=== PATIENT | female | born 1995 | race Caucasian/White ===

== ENCOUNTER 2017-01-18 17:14 | Emergency (ER) | payer BC, OTHER ==
[2017-01-18 17:28] VITALS: BP 114/62
--- NOTE | 2017-01-18 18:10 | EDM.PDOC ---
ED HPI GENERAL MEDICAL PROBLEM - General Chief Complaint: General Stated Complaint: SHE WOULD LIKE TO HAVE BLOOD WORK Time Seen by Provider: 01/18/17 17:50 Source of Information: Reports: Patient History Limitations: Reports: No Limitations - History of Present Illness INITIAL COMMENTS - FREE TEXT/NARRATIVE: History of present illness: [-year-old female comes in complaining of lightheadedness and some passing out. Patient indicates she had wisdom teeth extracted today and the only time she has had this is when she is anemic] Review of systems: As per history of present illness and below otherwise all systems reviewed and negative. Past medical history: As per history of present illness and as reviewed below otherwise noncontributory. Surgical history: As per history of present illness and as reviewed below otherwise noncontributory. Social history: No reported history of drug or alcohol abuse. Family history: As per history of present illness and as reviewed below otherwise noncontributory. Physical exam: HEENT: Atraumatic, normocephalic, pupils reactive, negative for conjunctival pallor or scleral icterus, mucous membranes moist, throat clear, neck supple, nontender, trachea midline. Lungs: Clear to auscultation, breath sounds equal bilaterally, chest nontender. Heart: S1S2, regular, negative for clicks, rubs, or JVD. Abdomen: Soft, nondistended, nontender. Negative for masses or hepatosplenomegaly. Negative for costovertebral tenderness. Pelvis: Stable nontender. Genitourinary: Deferred. Rectal: Deferred. Extremities: Atraumatic, negative for cords or calf pain. Neurovascular unremarkable. Neuro: Awake, alert, oriented. Cranial nerves II through XII unremarkable. Cerebellum unremarkable. Motor and sensory unremarkable throughout. Exam nonfocal. We'll assessment is benign save as that noted subjectively in the history of present illness. Diagnostics: [CBC] Therapeutics: [] Impression: [Medical evaluation] Plan: [Followup with family practitioner] Definitive disposition and diagnosis as appropriate pending reevaluation and review of above. Oral/Mouth Pain Score (Numeric/FACES): 0 - Related Data Allergies Allergy/AdvReac Type Severity Reaction Status Date / Time ciprofloxacin [From Cipro] Allergy Fever Verified 01/18/17 17:27 Home Meds: Home Meds Amoxicillin/Potassium Clav [Augmentin 875-125 Tablet] 01/18/17 [History] oxyCODONE HCl/Acetaminophen [oxyCODONE-Acetaminophen 5-325] 01/18/17 [History] Past Medical History - Past Health History Medical/Surgical History: Denies Medical/Surgical History HEENT History: Reports: None Cardiovascular History: Reports: None Respiratory History: Reports: None Gastrointestinal History: Reports: None Genitourinary History: Reports: None REPORT SPECIALIST History: Reports: None Musculoskeletal History: Reports: None Neurological History: Reports: None Psychiatric History: Reports: None Endocrine/Metabolic History: Reports: None Hematologic History: Reports: Anemia, Blood Transfusion(s) Immunologic History: Reports: None Oncologic (Cancer) History: Reports: None Dermatologic History: Reports: None - Infectious Disease History Infectious Disease History: Reports: None - Past Surgical History Head Surgeries/Procedures: Reports: None Social & Family History - Family History Family Medical History: Noncontributory - Tobacco Use Smoking Status *Q: Never Smoker Second Hand Smoke Exposure: Yes - Caffeine Use Caffeine Use: Reports: Energy Drinks, Soda Caffeine Use Comment: 2/day - Recreational Drug Use Recreational Drug Use: No ED ROS GENERAL - Review of Systems Review Of Systems: See Below (See history of present illness) ED EXAM, GENERAL - Physical Exam Exam: See Below (See history of present illness) Course - Vital Signs Last Recorded V/S: Last Vital Signs Temp 37.5 C 01/18/17 17:27 Pulse 81 01/18/17 17:27 Resp 14 01/18/17 17:27 BP 114/62 01/18/17 17:27 Pulse Ox 97 01/18/17 17:27 - Orders/Labs/Meds Labs: Laboratory Tests 01/18/17 Range/Units 17:40 WBC 8.22 (4.0-11.0) K/uL RBC 4.60 (4.30-5.90) M/uL Hgb 13.5 (12.0-16.0) g/dL Hct 41.4 (36.0-46.0) % MCV 90.0 (80.0-98.0) fL MCH 29.3 (27.0-32.0) pg MCHC 32.6 (31.0-37.0) g/dL RDW Std Deviation 41.4 (28.0-62.0) fl RDW Coeff of Pieter 13 (11.0-15.0) % Plt Count 183 (150-400) K/uL MPV 9.70 (7.40-12.00) fL Neut % (Auto) 77.8 (48.0-80.0) % Lymph % (Auto) 16.8 (16.0-40.0) % [place] % (Auto) 4.3 (0.0-15.0) % Eos % (Auto) 1.0 (0.0-7.0) % Baso % (Auto) 0.1 (0.0-1.5) % Neut # (Auto) 6.4 H (1.4-5.7) K/uL Lymph # (Auto) 1.4 (0.6-2.4) K/uL [place] # (Auto) 0.4 (0.0-0.8) K/uL Eos # (Auto) 0.1 (0.0-0.7) K/uL Baso # (Auto) 0.0 (0.0-0.1) K/uL Nucleated RBC % 0.0 /100WBC Nucleated RBCs # 0 K/uL Departure - Departure Time of Disposition: 18:08 Disposition: Home, Self-Care 01 Condition: good Clinical Impression: Light-headedness - Discharge Information Forms: ED Department Discharge Additional Instructions: The following information is given to patients seen in the emergency department who are being discharged to home. This information is to outline your options for follow-up care. We provide all patients seen in our emergency department with a follow-up referral. The need for follow-up, as well as the timing and circumstances, are variable depending upon the specifics of your emergency department visit. If you don't have a primary care physician on staff, we will provide you with a referral. We always advise you to contact your personal physician following an emergency department visit to inform them of the circumstance of the visit and for follow-up with them and/or the need for any referrals to a consulting specialist. The emergency department will also refer you to a specialist when appropriate. This referral assures that you have the opportunity for follow-up care with a specialist. All of these measure are taken in an effort to provide you with optimal care, which includes your follow-up. Under all circumstances we always encourage you to contact your private physician who remains a resource for coordinating your care. When calling for follow-up care, please make the office aware that this follow-up is from your recent emergency room visit. If for any reason you are refused follow-up, please contact the [facility] Emergency Department at and asked to speak to the emergency department charge nurse. Followup with your primary care provider for more detailed iron-binding studies to benefit you Take your iron as prescribed Return to ED as needed as discussed
== END 2017-01-18 18:21 | disposition home or self-care (01) ==
LOC: MW.ED 17:14
DX: R42 Dizziness and giddiness (principal); Z88.1 Allergy status to other antibiotic agents; Z86.2 Personal history of diseases of the blood and blood-forming organs and certain disorders involving the immune mechanism
CPT/HCPCS: 36415; 85025; 99282; 99283

== ENCOUNTER 2017-06-17 19:22 | Emergency (ER) | payer BC ==
[2017-06-17] MEDS ORDERED: Acyclovir 200 MG Cap PO ONE (20:33)
--- NOTE | 2017-06-17 20:33 | EDM.PDOC ---
ED HPI GENERAL MEDICAL PROBLEM - General Chief Complaint: ENT Problem Stated Complaint: EARACHE/HEADACHE/ULCERS MOUTH Time Seen by Provider: 06/17/17 20:23 Source of Information: Reports: Patient History Limitations: Reports: No Limitations - History of Present Illness INITIAL COMMENTS - FREE TEXT/NARRATIVE: History of present illness: [21-year-old female comes in complaining of sores in the back of her throat in the floor of her mouth indicated that she been placed on antibiotics by her PCP and they continue to get worse when she called in to check in with them they indicated she should come and be evaluated in the ED] Review of systems: As per history of present illness and below otherwise all systems reviewed and negative. Past medical history: As per history of present illness and as reviewed below otherwise noncontributory. Surgical history: As per history of present illness and as reviewed below otherwise noncontributory. Social history: No reported history of drug or alcohol abuse. Family history: As per history of present illness and as reviewed below otherwise noncontributory. Physical exam: HEENT: Atraumatic, normocephalic, pupils reactive, negative for conjunctival pallor or scleral icterus, mucous membranes moist ulcerated patches noted to be in the oropharynx and in the floor of the mouth, throat clear, neck supple, nontender, trachea midline. Lungs: Clear to auscultation, breath sounds equal bilaterally, chest nontender. Heart: S1S2, regular, negative for clicks, rubs, or JVD. Abdomen: Soft, nondistended, nontender. Negative for masses or hepatosplenomegaly. Negative for costovertebral tenderness. Pelvis: Stable nontender. Genitourinary: Deferred. Rectal: Deferred. Extremities: Atraumatic, negative for cords or calf pain. Neurovascular unremarkable. Neuro: Awake, alert, oriented. Cranial nerves II through XII unremarkable. Cerebellum unremarkable. Motor and sensory unremarkable throughout. Exam nonfocal. Diagnostics: [] Therapeutics: [] Impression: [Ulcerative all oral lesions possibly by of viral origin] Plan: [Cyclovir care and acyclovir Rx for tomorrow] Definitive disposition and diagnosis as appropriate pending reevaluation and review of above. Oral/Mouth Pain Score (Numeric/FACES): 3 - Related Data Allergies Allergy/AdvReac Type Severity Reaction Status Date / Time ciprofloxacin [From Cipro] Allergy Fever Verified 06/17/17 19:47 Home Meds: Home Meds Amoxicillin/Potassium Clav [Augmentin 875-125 Tablet] 1 tab PO BID 01/18/17 [ History] Acyclovir 800 mg PO 5XDAY #35 tablet 06/17/17 [Rx] l-Norgest/E.estradion-E.estrad [Camrese 0.15-0.03-0.01 MG] 1 tab PO DAILY [History] Past Medical History - Past Health History Medical/Surgical History: Denies Medical/Surgical History HEENT History: Reports: None Cardiovascular History: Reports: None Respiratory History: Reports: None Gastrointestinal History: Reports: None Genitourinary History: Reports: None 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 Musculoskeletal History: Reports: None Neurological History: Reports: None Psychiatric History: Reports: None Endocrine/Metabolic History: Reports: None Hematologic History: Reports: Anemia, Blood Transfusion(s) Immunologic History: Reports: None Oncologic (Cancer) History: Reports: None Dermatologic History: Reports: None - Infectious Disease History Infectious Disease History: Reports: Chicken Pox - Past Surgical History Head Surgeries/Procedures: Reports: None Social & Family History - Family History Family Medical History: Noncontributory - Tobacco Use Smoking Status *Q: Former Smoker Used Tobacco, but Quit: Yes Month Tobacco Last Used: 11/2016 Second Hand Smoke Exposure: Yes - Caffeine Use Caffeine Use: Reports: Energy Drinks Caffeine Use Comment: 2/day - Recreational Drug Use Recreational Drug Use: No ED ROS GENERAL - Review of Systems Review Of Systems: See Below (The history of present illness) ED EXAM, GENERAL - Physical Exam Exam: See Below (See history of present illness) Course - Vital Signs Last Recorded V/S: Last Vital Signs Temp 37.0 C 06/17/17 19:42 Pulse 81 06/17/17 19:42 Resp 12 06/17/17 19:42 BP 121/81 06/17/17 19:42 Pulse Ox 98 06/17/17 19:42 Departure - Departure Time of Disposition: 20:40 Disposition: Home, Self-Care 01 Condition: Good Clinical Impression: Mouth sores - Discharge Information Referrals: PCP,None [Primary Care Provider] - Additional Instructions: The following information is given to patients seen in the emergency department who are being discharged to home. This information is to outline your options for follow-up care. We provide all patients seen in our emergency department with a follow-up referral. The need for follow-up, as well as the timing and circumstances, are variable depending upon the specifics of your emergency department visit. If you don't have a primary care physician on staff, we will provide you with a referral. We always advise you to contact your personal physician following an emergency department visit to inform them of the circumstance of the visit and for follow-up with them and/or the need for any referrals to a consulting specialist. The emergency department will also refer you to a specialist when appropriate. This referral assures that you have the opportunity for follow-up care with a specialist. All of these measure are taken in an effort to provide you with optimal care, which includes your follow-up. Under all circumstances we always encourage you to contact your private physician who remains a resource for coordinating your care. When calling for follow-up care, please make the office aware that this follow-up is from your recent emergency room visit. If for any reason you are refused follow-up, please contact the [facility] Emergency Department at and asked to speak to the emergency department charge nurse. Take medication as directed Up with your PCP 1-2 days Return to ED as needed as discussed
[2017-06-17 21:05] VITALS: BP 119/76
== END 2017-06-17 21:06 | disposition home or self-care (01) ==
LOC: MW.ED 19:22
DX: K13.70 Unspecified lesions of oral mucosa (principal); Z88.1 Allergy status to other antibiotic agents; Z79.899 Other long term (current) drug therapy; Z87.891 Personal history of nicotine dependence
CPT/HCPCS: 99283; A9270

== ENCOUNTER 2020-05-07 19:16 | Inpatient (IN) | payer BC ==
[2020-05-07] MEDS ORDERED: Sodium Chloride 0.9% 2.5 ML Syringe FLUSH PRN (19:42)
[2020-05-07] MEDS ORDERED: Misoprostol 200 MCG Tab PO PRN (19:42)
[2020-05-07] MEDS ORDERED: Methylergonovine 0.2 MG/1 ML Amp IM PRN (19:42)
[2020-05-07] MEDS ORDERED: Lidocaine 1% 50 ML MDV INJECT PRN (19:42)
[2020-05-07] MEDS ORDERED: Tranexamic Acid 1,000 MG in Sodium Chloride 0.9% 100 ML IV PRN (19:42)
[2020-05-07] MEDS ORDERED: Sodium Chloride 0.9% 10 ML SDV IV PRN (19:42)
[2020-05-07] MEDS ORDERED: Water For Irrigation,Sterile 1,000 ML Container IRR PRN (19:42)
[2020-05-07] MEDS ORDERED: Carboprost Tromethamine 250 MCG/1 ML Amp IM PRN (19:42)
[2020-05-07] MEDS ORDERED: Butorphanol 1 MG/ML SDV IVPUSH PRN (19:42)
[2020-05-07] MEDS ORDERED: Sodium Chloride 0.9% 10 ML Syringe FLUSH PRN (19:42)
[2020-05-07] MEDS ORDERED: Nalbuphine 10 MG/1 ML Vial IVPUSH PRN (19:42)
[2020-05-07] MEDS ORDERED: Lactated Ringers 1,000 ML IV SCH (19:45)
[2020-05-07] MEDS ORDERED: Oxytocin/0.9 % Sodium Chloride 30 UNIT/500 ML BAG IV SCH ×2 (19:45→20:15)
[2020-05-07] MEDS ORDERED: Ropivacaine HCl/PF 100 ML ONE (21:52)
[2020-05-07] MEDS ORDERED: fentaNYL 100 MCG/2 ML SDV ONE (21:52)
--- NOTE | 2020-05-07 22:32 | PCM.PREANE ---
Preanesthetic Assessment - Procedure Proposed Procedure: EDER for active labor. Anesthesia time spent 3901-5770. Late entry, assessed at 2137-bedside LDR 2, physical assessment and medical history. Discussed epidural risks, benefits, procedure, anesthesia coverage, and FOOD PRODUCTION SUPERVISOR education with patient. All questions answered and concerns addressed. Consent signed with RN as witness. - Anesthesia/Transfusion/Family Hx Anesthesia History: Prior Anesthesia Without Reaction ([place] teeth under GA with no anesthesia complications. No other surgical history.) Family History of Anesthesia Reaction: No Transfusion History: Prior Transfusion Without Reaction (Transfusion for anemia in 2014 without reaction.) - Review of Systems General: No Symptoms Pulmonary: No Symptoms Cardiovascular: No Symptoms Gastrointestinal: No Symptoms Neurological: No Symptoms Other: Reports: None - Physical Assessment NPO Status Date: 05/07/20 (NPO time for food, clear liquids okay.) NPO Status Time: 15:00 Height: 1.68 m Weight: 62.596 kg ASA Class: 2 Mental Status: Alert & Oriented x3 Airway Class: Mallampati = 1 Dentition: Reports: Normal Dentition Thyro-Mental Finger Breadths: 4 Mouth Opening Finger Breadths: 3 ROM/Head Extension: Full Lungs: Normal Respiratory Effort Cardiovascular: Regular Rate, Regular Rhythm - Lab Values: Laboratory Last Values WBC 8.03 K/uL (4.0-11.0) 05/07/20 19:40 RBC 4.22 M/uL (4.30-5.90) L 05/07/20 19:40 Hgb 11.2 g/dL (12.0-16.0) L 05/07/20 19:40 Hct 35.8 % (36.0-46.0) L 05/07/20 19:40 MCV 84.8 fL (80.0-98.0) 05/07/20 19:40 MCH 26.5 pg (27.0-32.0) L 05/07/20 19:40 MCHC 31.3 g/dL (31.0-37.0) 05/07/20 19:40 RDW Std Deviation 46.6 fl (28.0-62.0) 05/07/20 19:40 RDW Coeff of Pieter 15 % (11.0-15.0) 05/07/20 19:40 Plt Count 220 K/uL (150-400) 05/07/20 19:40 MPV 10.40 fL (7.40-12.00) 05/07/20 19:40 Nucleated RBC % 0.0 /100WBC 05/07/20 19:40 Nucleated RBCs # 0 K/uL 05/07/20 19:40 SARS-CoV-2 RNA (DIXIE) NEGATIVE (NEGATIVE) 05/07/20 19:47 Blood Type O NEGATIVE 05/07/20 19:40 Antibody Screen NEGATIVE 05/07/20 19:40 - Allergies Allergies/Adverse Reactions: Allergies Allergy/AdvReac Type Severity Reaction Status Date / Time ciprofloxacin [From Cipro] Allergy Fever Verified 05/07/20 19:40 - Anesthesia Plan Pre-Op Medication Ordered: None - Acknowledgements Anesthesia Type Planned: Epidural Pt an Appropriate Candidate for the Planned Anesthesia: Yes Alternatives and Risks of Anesthesia Discussed w Pt/Guardian: Yes Pt/Guardian Understands and Agrees with Anesthesia Plan: Yes Additional Comments: History of anemia, current labs reviewed. Potential for using epidural for CS, or GA for emergency as needed discussed with patient and S.O. 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 Musculoskeletal History: Reports: None Neurological History: Reports: None Psychiatric History: Reports: None Endocrine/Metabolic History: Reports: None Hematologic History: Reports: Anemia, Blood Transfusion(s) Immunologic History: Reports: None Oncologic (Cancer) History: Reports: None Dermatologic History: Reports: None - Infectious Disease History Infectious Disease History: Reports: Chicken Pox - Past Surgical History Head Surgeries/Procedures: Reports: None - HOME MEDS Home Medications: Home Meds Norelgestromin/Ethin.Estradiol [Xulane Patch] 1 each TD WEEKLY 07/12/18 [History] - CURRENT (IN HOUSE) MEDS Current Meds: Current Medications Butorphanol Tartrate (Stadol) 1 mg IVPUSH Q1H PRN PRN Reason: Pain Carboprost Tromethamine (Hemabate Ds) 250 mcg IM ASDIRECTED PRN PRN Reason: Post Hemorrhage Oxytocin/Sodium Chloride (Oxytocin 30 Unit/500 Ml-Ns) 30 unit in 500 mls @ 500 mls/hr IV TITRATE DEEJAY Tranexamic Acid 1,000 mg/ (Sodium Chloride) 110 mls @ 660 mls/hr IV ONETIME PRN PRN Reason: Bleeding Lactated Ringer's (Ringers, Lactated) 1,000 mls @ 150 mls/hr IV ASDIRECTED DEEJAY Oxytocin/Sodium Chloride (Oxytocin 30 Unit/500 Ml-Ns) 30 unit in 500 mls @ 2 mls/hr IV TITRATE DEEJAY; Protocol Lidocaine HCl (Xylocaine 1%) 50 ml INJECT ONETIME PRN PRN Reason: Laceration repair Methylergonovine Maleate (Methergine) 0.2 mg IM ASDIRECTED PRN PRN Reason: Post Hemorrhage Misoprostol (Cytotec) 200 mcg PO ONETIME PRN PRN Reason: Post Hemorrhage Nalbuphine HCl (Nubain) 10 mg IVPUSH Q1H PRN PRN Reason: Pain (severe 7-10) Sodium Chloride (Saline Flush) 10 ml FLUSH ASDIRECTED PRN PRN Reason: Keep Vein Open Sodium Chloride (Saline Flush) 2.5 ml FLUSH ASDIRECTED PRN PRN Reason: Keep Vein Open Sodium Chloride (Normal Saline) 10 ml IV ASDIRECTED PRN PRN Reason: IV Use Sterile Water (Sterile Water For Irrigation) 1,000 ml IRR ASDIRECTED PRN PRN Reason: delivery Discontinued Medications Fentanyl (Sublimaze) Confirm Administered Dose 200 mcg .ROUTE .STK-MED ONE Stop: 05/07/20 21:53 Ropivacaine (Naropin 0.2%) Confirm Administered Dose 100 mls @ as directed .ROUTE .STK-MED ONE Stop: 05/07/20 21:53
--- NOTE | 2020-05-07 22:33 | PCM.SN.2 ---
- Free Text/Narrative Note: EDER for active labor. Anesthesia time spent [id number]. 2137-bedside LDR 2, discussed epidural risks, benefits, procedure, anesthesia coverage, and GENERAL DENTIST/OWNER education with patient. All questions answered and concerns addressed. Consent signed with RN as witness. 2152-"Time Out", sitting position, sterile prep. and drape, localized with 22g and lidocaine wheel. 2154-Attempt #1 successful at L2-3 with 17g Tuohy, JOLENE at 5cm with saline. No paresthesias. 2155- catheter threaded to 10 cm (no resistance or paresthesias). 2202- negative to aspiration for both blood and CSF, test dose negative. Secured with sterile tegaderm and tape. 2208- bolus given, drip started, education reviewed and questions answered. 7-T10 level achieved, pt reports adequate pain control
[2020-05-08] MEDS ORDERED: Acetaminophen 500 MG Tab PO PRN (02:19)
[2020-05-08] MEDS ORDERED: oxyCODONE 5 MG Tab PO PRN (02:19)
[2020-05-08] MEDS ORDERED: Bisacodyl 10 MG Supp RECTAL PRN (02:19)
[2020-05-08] MEDS ORDERED: Ibuprofen 400 MG Tab PO PRN (02:19)
[2020-05-08] MEDS ORDERED: Lanolin 100% Cream 7 GM Tube TOP PRN (02:19)
[2020-05-08] MEDS ORDERED: Diphtheria,Pertussis(Acell),Tetanus Vaccine 0.5 ML Syringe IM ONE (02:21)
[2020-05-08] MEDS ORDERED: Measles, Mumps & Rubella Vaccine 0.5 ML SDV SUBCUT ONE (02:28)
--- NOTE | 2020-05-08 02:28 | PCM.DEL ---
L & D Note - General Info Date of Service: 05/08/20 - Delivery Note Labor: Spontaneous Delivery Outcome: Livebirth Delivery Method: Spontaneous Vaginal Delivery-Single Presentation: Right Occiput Anterior (ELODIA) Nuchal Cord: None Anesthesia Type: Epidural Amniotic Fluid Description: Clear Episiotomy Type: None Laceration: 1st Degree, Periurethral Suture type: Vicryl Suture size: 3-0 Placenta: Intact, Spontaneous Cord: 3 Vessels Estimated Blood Loss: 200 Resuscitation Needed: No : Suctioned Provider: Hernandez Balderas Score 1 min: 8 Score 5 min: 9 Second Stage Interventions: Reports: Pushing Effectively - General Info Date of Service: 05/08/20 - Patient Data Weight - Most Recent: 138 lb Lab Results Last 24 Hours: Laboratory Results - last 24 hr 05/07/20 05/07/20 05/07/20 Range/Units 19:40 19:40 19:47 WBC 8.03 (4.0-11.0) K/uL RBC 4.22 L (4.30-5.90) M/uL Hgb 11.2 L (12.0-16.0) g/dL Hct 35.8 L (36.0-46.0) % MCV 84.8 (80.0-98.0) fL MCH 26.5 L (27.0-32.0) pg MCHC 31.3 (31.0-37.0) g/dL RDW Std Deviation 46.6 (28.0-62.0) fl RDW Coeff of Pieter 15 (11.0-15.0) % Plt Count 220 (150-400) K/uL MPV 10.40 (7.40-12.00) fL Nucleated RBC % 0.0 /100WBC Nucleated RBCs # 0 K/uL SARS-CoV-2 RNA (DIXIE) NEGATIVE (NEGATIVE) Blood Type O NEGATIVE Antibody Screen NEGATIVE Med Orders - Current: Current Medications Acetaminophen (Tylenol Extra Strength) 500 mg PO Q4H PRN PRN Reason: Pain Acetaminophen (Tylenol Extra Strength) 1,000 mg PO Q4H PRN PRN Reason: Pain Benzocaine/Menthol (Dermoplast Pain Relief 20%-0.5% [place]) 78 gm TOP ASDIRECTED PRN PRN Reason: Perineal Comfort Measure Bisacodyl (Dulcolax) 10 mg RECTAL ONETIME PRN PRN Reason: Constipation Butorphanol Tartrate (Stadol) 1 mg IVPUSH Q1H PRN PRN Reason: Pain Carboprost Tromethamine (Hemabate Ds) 250 mcg IM ASDIRECTED PRN PRN Reason: Post Hemorrhage Diphtheria/Tetanus/Acell Pertussis (Boostrix) 0.5 ml IM .ONCE ONE Stop: 05/08/20 02:22 Docusate Sodium (Colace) 100 mg PO BID PRN PRN Reason: Constipation Emollient Ointment (Lansinoh Hpa) 0 gm TOP ASDIRECTED PRN PRN Reason: Sore Nipples Oxytocin/Sodium Chloride (Oxytocin 30 Unit/500 Ml-Ns) 30 unit in 500 mls @ 500 mls/hr IV TITRATE DEEJAY Tranexamic Acid 1,000 mg/ (Sodium Chloride) 110 mls @ 660 mls/hr IV ONETIME PRN PRN Reason: Bleeding Lactated Ringer's (Ringers, Lactated) 1,000 mls @ 150 mls/hr IV ASDIRECTED DEEJAY Oxytocin/Sodium Chloride (Oxytocin 30 Unit/500 Ml-Ns) 30 unit in 500 mls @ 2 mls/hr IV TITRATE DEEJAY; Protocol Ibuprofen (Motrin) 400 mg PO Q4H PRN PRN Reason: Pain Ibuprofen (Motrin) 800 mg PO Q6H PRN PRN Reason: Pain Lidocaine HCl (Xylocaine 1%) 50 ml INJECT ONETIME PRN PRN Reason: Laceration repair Methylergonovine Maleate (Methergine) 0.2 mg IM ASDIRECTED PRN PRN Reason: Post Hemorrhage Misoprostol (Cytotec) 200 mcg PO ONETIME PRN PRN Reason: Post Hemorrhage Nalbuphine HCl (Nubain) 10 mg IVPUSH Q1H PRN PRN Reason: Pain (severe 7-10) Oxycodone HCl (Oxycodone) 5 mg PO Q2H PRN PRN Reason: Pain Sodium Chloride (Saline Flush) 10 ml FLUSH ASDIRECTED PRN PRN Reason: Keep Vein Open Sodium Chloride (Saline Flush) 2.5 ml FLUSH ASDIRECTED PRN PRN Reason: Keep Vein Open Sodium Chloride (Normal Saline) 10 ml IV ASDIRECTED PRN PRN Reason: IV Use Sterile Water (Sterile Water For Irrigation) 1,000 ml IRR ASDIRECTED PRN PRN Reason: delivery Witch Hyacinth (Tucks) 1 pad TOP ASDIRECTED PRN PRN Reason: comfort care Discontinued Medications Fentanyl (Sublimaze) Confirm Administered Dose 200 mcg .ROUTE .STK-MED ONE Stop: 05/07/20 21:53 Ropivacaine (Naropin 0.2%) Confirm Administered Dose 100 mls @ as directed .ROUTE .STK-MED ONE Stop: 05/07/20 21:53 - Problem List Review Problem List Initiated/Reviewed/Updated: Yes - My Orders Last 24 Hours: My Active Orders 05/07/20 19:40 RPR (SYPHILIS SERO) W/ RFLX [REF] Routine 05/07/20 19:42 May Shower [RC] ASDIRECTED Up ad Regi [RC] ASDIRECTED Vital Signs [RC] PER UNIT ROUTINE Butorphanol [Stadol] 1 mg IVPUSH Q1H PRN Carboprost Tromethamine [Hemabate DS] 250 mcg IM ASDIRECTED PRN Lidocaine 1% [Xylocaine 1%] 50 ml INJECT ONETIME PRN Methylergonovine [Methergine] 0.2 mg IM ASDIRECTED PRN Nalbuphine [Nubain] 10 mg IVPUSH Q1H PRN Sodium Chloride 0.9% [Normal Saline] 10 ml IV ASDIRECTED PRN Sodium Chloride 0.9% [Saline Flush] 10 ml FLUSH ASDIRECTED PRN Sodium Chloride 0.9% [Saline Flush] 2.5 ml FLUSH ASDIRECTED PRN Tranexamic Acid [Cyklokapron] 1,000 mg Sodium Chloride 0.9% [Normal Saline] 100 ml IV ONETIME Water For Irrigation,Sterile [Sterile Water for Irrigation] 1,000 ml IRR ASDIRECTED PRN miSOPROStoL [Cytotec] 200 mcg PO ONETIME PRN Scalp Electrode [WOMSER] Per Unit Routine Peripheral IV Insertion Adult [OM.PC] Routine Resuscitation Status Routine 05/07/20 19:45 Lactated Ringers [Ringers, Lactated] 1,000 ml IV ASDIRECTED Oxytocin/0.9 % Sodium Chloride [Oxytocin 30 Unit/500 ML-NS] 30 unit in 500 ml IV TITRATE 05/07/20 20:15 Oxytocin/0.9 % Sodium Chloride [Oxytocin 30 Unit/500 ML-NS] 30 unit in 500 ml IV TITRATE 05/08/20 02:19 Patient Status [ADT] Routine May Shower [RC] ASDIRECTED Up ad Regi [RC] ASDIRECTED Vital Signs [RC] PER UNIT ROUTINE Acetaminophen [Tylenol Extra Strength] 1,000 mg PO Q4H PRN Acetaminophen [Tylenol Extra Strength] 500 mg PO Q4H PRN Benzocaine/Menthol [Dermoplast Pain Relief 20%-0.5% [place]] 78 gm TOP ASDIRECTED PRN Docusate Sodium [Colace] 100 mg PO BID PRN Ibuprofen [Motrin] 400 mg PO Q4H PRN Ibuprofen [Motrin] 800 mg PO Q6H PRN Lanolin [Lansinoh HPA] See Dose Instructions TOP ASDIRECTED PRN bisacodyL [Dulcolax] 10 mg RECTAL ONETIME PRN oxyCODONE 5 mg PO Q2H PRN witch Hyacinth [Tucks] 1 pad TOP ASDIRECTED PRN Assess Lochia [WOMSER] Per Unit Routine Assess Uterine Involution [WOMSER] Per Unit Routine Peripheral IV Discontinue [OM.PC] Routine 05/08/20 02:20 Perineal Care [OM.PC] Per Unit Routine Sitz Bath [OM.PC] Per Unit Routine 05/08/20 02:21 Vaccines to be Administered [RC] PER UNIT ROUTINE Diphth,Pertuss(Acell),Tet Vac [Boostrix] 0.5 ml IM .ONCE ONE 05/08/20 02:22 RHOGAM, [RHIG WORKUP, ] [BBK] Routine 05/09/20 05:11 HEMOGLOBIN/HEMATOCRIT,HH [HEME] Timed - Assessment Assessment:: 24yo PPD0 s/p uncomplicated at 40w0d. - Plan Plan:: Routine care. Rhogam Rubella nonimmune, MMR
--- NOTE | 2020-05-08 03:58 | OR ---
SURGEON: Adam Kerr MD DATE OF PROCEDURE: 05/08/2020 INDICATION FOR PROCEDURE: A 24-year-old, , at 40 weeks and 0 days, admitted with spontaneous rupture of membranes and early labor. The patient had gush of clear fluid around 6:45 p.m. and presented to Labor and Delivery. Membrane rupture was confirmed and she was 3 cm dilated. The patient had uncomplicated . GBS was negative. She was admitted and began having more regular contractions and making cervical change on her own. She received epidural for pain control and had good pain relief. The baby was category 1 tracing, had occasional variable decels, which recovered after repositioning. She quickly became fully dilated with urge to push. PREOPERATIVE DIAGNOSIS: [place] intrauterine at 40 weeks and 0 days. POSTOPERATIVE DIAGNOSIS: [place] intrauterine at 40 weeks and 0 days. PROCEDURE PERFORMED: Normal spontaneous vaginal delivery, repair of right periurethral laceration, and first-degree perineal laceration. ANESTHESIOLOGIST: Dr. Domingo Newton. ANESTHESIA: Epidural. FINDINGS: Viable female , score of 8 and 9. Weight is 7lbs and 6oz. ESTIMATED BLOOD LOSS: 300 mL. DESCRIPTION OF PROCEDURE: The patient pushed with contractions for approximately 30 minutes with good descent. head in occiput-anterior position, restituted ROT. Anterior shoulder delivered easily followed by posterior shoulder and remaining body. No nuchal cord was noted. The baby was placed on maternal chest and evaluated by awaiting nursery staff. The baby was pink crying and moving all extremities after delivery. The umbilical cord was clamped and cut after 60 seconds and no longer pulsating. The umbilical cord gases were obtained. The placenta was removed with gentle traction on the umbilical cord. It was examined and found to be intact with 3-vessel cord. The fundus was firm and below the umbilicus and the bleeding was light. Vaginal exam was performed and she had a deep right periurethral laceration and a first-degree perineal laceration. Both were repaired with 3-0 Vicryl in running fashion. Hemostasis was confirmed after repair. She tolerated the procedure well, was given care instructions. CORTNEY / RAMONITA /[id number] [facility] COLLEGE HOSPITALGilberto
[2020-05-08] MEDS: Witch Hazel Medicated Pads 40/Jar TOP PRN (05:13)
[2020-05-08] MEDS: Benzocaine/Menthol 20%-0.5% Spray 78 GM Cannister TOP PRN (05:13)
[2020-05-08] MEDS: Ibuprofen 800 MG Tab PO PRN ×2 (05:14→11:00)
[2020-05-08] MEDS: Acetaminophen 500 MG Tab PO PRN ×2 (08:35→16:23)
--- NOTE | 2020-05-08 10:08 | PCM48HPAN ---
Post Anesthesia Note - EVALUATION WITHIN 48HRS OF ANESTHETIC Vital Signs in Normal Range: Yes Patient Participated in Evaluation: Yes Respiratory Function Stable: Yes Airway Patent: Yes Cardiovascular Function Stable: Yes Hydration Status Stable: Yes (Taking PO well, denies nausea) Pain Control Satisfactory: Yes (Pain level 2/10, reports satisfactory pain control) Nausea and Vomiting Control Satisfactory: Yes Mental Status Recovered: Yes Vital Signs: Last Vital Signs Temp 36.3 C 05/08/20 08:15 Pulse 59 L 05/08/20 08:15 Resp 12 05/08/20 08:15 BP 116/63 05/08/20 08:15 Pulse Ox 96 05/08/20 08:15 - COMMENTS/OBSERVATIONS Free Text/Narrative:: Ambulating without difficulty, reports full return of strength and sensation to BLE.
[2020-05-08] MEDS: Docusate Sodium 100 MG Cap PO PRN (17:44)
[2020-05-09] MEDS: Ibuprofen 800 MG Tab PO PRN (02:08)
[2020-05-09] MEDS: Acetaminophen 500 MG Tab PO PRN ×2 (04:37→12:52)
[2020-05-09] MEDS: Docusate Sodium 100 MG Cap PO PRN (12:52)
[2020-05-09 14:05] VITALS: BP 134/62; PULSE 80
--- NOTE | 2020-05-09 16:22 | PCM.PNPP ---
- General Info Date of Service: 05/09/20 Functional Status: Reports: Pain Controlled, Tolerating Diet, Ambulating, Urinating, Other (Patient seen at 9AM today, documentation completed after. ) - Review of Systems General: Reports: No Symptoms HEENT: Reports: No Symptoms Pulmonary: Reports: No Symptoms Cardiovascular: Reports: No Symptoms Gastrointestinal: Reports: No Symptoms Genitourinary: Reports: No Symptoms Musculoskeletal: Reports: No Symptoms Skin: Reports: No Symptoms Neurological: Reports: No Symptoms Psychiatric: Reports: No Symptoms - Patient Data Vital Signs - Most Recent: Last Vital Signs Temp 36.6 C 05/09/20 04:30 Pulse 80 05/09/20 12:00 Resp 15 05/09/20 12:00 BP 134/62 05/09/20 12:00 Pulse Ox 96 05/09/20 12:00 Weight - Most Recent: 138 lb I&O - Last 24 Hours: Intake & Output 05/09/20 05/09/20 05/09/20 06:59 14:59 22:59 Intake Total 2 Balance 2 Lab Results - Last 24 Hours: Laboratory Results - last 24 hr 05/08/20 05/09/20 Range/Units 03:15 06:13 Hgb 9.4 L (12.0-16.0) g/dL Hct 30.6 L (36.0-46.0) % Screen NEGATIVE (NEGATIVE) RhIG Candidate? YES Rhogam Indicated YES, BABY RH POS H Med Orders - Current: Current Medications Acetaminophen (Tylenol Extra Strength) 500 mg PO Q4H PRN PRN Reason: Pain Acetaminophen (Tylenol Extra Strength) 1,000 mg PO Q4H PRN PRN Reason: Pain Last Admin: 05/09/20 12:52 Dose: 1,000 mg Documented by: Benzocaine/Menthol (Dermoplast Pain Relief 20%-0.5% [place]) 78 gm TOP ASDIRECTED PRN PRN Reason: Perineal Comfort Measure Last Admin: 05/08/20 05:13 Dose: 1 applic Documented by: Bisacodyl (Dulcolax) 10 mg RECTAL ONETIME PRN PRN Reason: Constipation Butorphanol Tartrate (Stadol) 1 mg IVPUSH Q1H PRN PRN Reason: Pain Carboprost Tromethamine (Hemabate Ds) 250 mcg IM ASDIRECTED PRN PRN Reason: Post Hemorrhage Docusate Sodium (Colace) 100 mg PO BID PRN PRN Reason: Constipation Last Admin: 05/09/20 12:52 Dose: 100 mg Documented by: Emollient Ointment (Lansinoh Hpa) 0 gm TOP ASDIRECTED PRN PRN Reason: Sore Nipples Oxytocin/Sodium Chloride (Oxytocin 30 Unit/500 Ml-Ns) 30 unit in 500 mls @ 500 mls/hr IV TITRATE DEEJAY Last Admin: 05/08/20 02:00 Dose: 500 mls/hr Documented by: Tranexamic Acid 1,000 mg/ (Sodium Chloride) 110 mls @ 660 mls/hr IV ONETIME PRN PRN Reason: Bleeding Lactated Ringer's (Ringers, Lactated) 1,000 mls @ 150 mls/hr IV ASDIRECTED DEEJAY Oxytocin/Sodium Chloride (Oxytocin 30 Unit/500 Ml-Ns) 30 unit in 500 mls @ 2 mls/hr IV TITRATE DEEJAY; Protocol Ibuprofen (Motrin) 400 mg PO Q4H PRN PRN Reason: Pain Ibuprofen (Motrin) 800 mg PO Q6H PRN PRN Reason: Pain Last Admin: 05/09/20 02:08 Dose: 800 mg Documented by: Lidocaine HCl (Xylocaine 1%) 50 ml INJECT ONETIME PRN PRN Reason: Laceration repair Methylergonovine Maleate (Methergine) 0.2 mg IM ASDIRECTED PRN PRN Reason: Post Hemorrhage Misoprostol (Cytotec) 200 mcg PO ONETIME PRN PRN Reason: Post Hemorrhage Nalbuphine HCl (Nubain) 10 mg IVPUSH Q1H PRN PRN Reason: Pain (severe 7-10) Oxycodone HCl (Oxycodone) 5 mg PO Q2H PRN PRN Reason: Pain Sodium Chloride (Saline Flush) 10 ml FLUSH ASDIRECTED PRN PRN Reason: Keep Vein Open Sodium Chloride (Saline Flush) 2.5 ml FLUSH ASDIRECTED PRN PRN Reason: Keep Vein Open Sodium Chloride (Normal Saline) 10 ml IV ASDIRECTED PRN PRN Reason: IV Use Sterile Water (Sterile Water For Irrigation) 1,000 ml IRR ASDIRECTED PRN PRN Reason: delivery Witch Hyacinth (Tucks) 1 pad TOP ASDIRECTED PRN PRN Reason: comfort care Last Admin: 05/08/20 05:13 Dose: 1 applic Documented by: Discontinued Medications Diphtheria/Tetanus/Acell Pertussis (Boostrix) 0.5 ml IM .ONCE ONE Stop: 05/08/20 02:22 Fentanyl (Sublimaze) Confirm Administered Dose 200 mcg .ROUTE .STK-MED ONE Stop: 05/07/20 21:53 Ropivacaine (Naropin 0.2%) Confirm Administered Dose 100 mls @ as directed .LILLIAM McdonnellSTK-MED ONE Stop: 05/07/20 21:53 Measles/Mumps/Rubella Vaccine Live (M-M-R Ii Vaccine) 0.5 ml SUBCUT .ONCE ONE Stop: 05/08/20 02:29 Last Admin: 05/09/20 08:41 Dose: Not Given Documented by: - Interaction Infant Disposition, : at Bedside Interaction: Holding Infant Infant Feeding: Bottle Fed Support Person: Significant Other - Recovery Exam Fundal Tone: Firm Fundal Level: 1 Fingerbreadths Below Umbilicus Fundal Placement: Right Lochia Amount: Small Lochia Color: Rubra/Red Perineum Description: Edematous Episiotomy/Laceration: Approximated Bladder Status: Voiding Urinary Elimination: Voided - Exam General: Alert, Oriented, Cooperative, No Acute Distress HEENT: Pupils Equal, Pupils Reactive Neck: Supple, Trachea Midline, No JVD Lungs: Normal Respiratory Effort GI/Abdominal Exam: Soft, Non-Tender, No Distention Extremities: Normal Inspection, Normal Range of Motion, Non-Tender, No Pedal Edema Skin: Warm, Dry, Intact Wound/Incisions: Healing Well Neurological: No New Focal Deficit Psy/Mental Status: Alert, Normal Affect, Normal Mood - Problem List Review Problem List Initiated/Reviewed/Updated: Yes - My Orders Last 24 Hours: My Active Orders 05/09/20 15:53 Ready for Discharge [RC] PER UNIT ROUTINE - Assessment Assessment:: 24yo PPD1 s/p uncomplicated at 40w0d. - Plan Plan:: Hgb 9.4 today, bleeding is light, no s/s of anemia. Start irom BID Rhogam give Rubella nonimmune, MMR as outpatient Stable for discharge home, reviewed care instructions.
[2020-05-09] MEDS: Benzocaine/Menthol 20%-0.5% Spray 78 GM Cannister TOP PRN (17:13)
[2020-05-09] MEDS: Witch Hazel Medicated Pads 40/Jar TOP PRN (17:13)
== END 2020-05-09 17:36 | disposition home or self-care (01) | DRG 560 ==
LOC: MW.OB 19:16 → MW.OBCHECK 19:16 → MW.OB 19:42 → MW.OBCHECK 19:42 → OBSVTOIN 05-08 01:50 → MW.OB 05-08 05:45
PROVIDERS: ADMIT Obstetrics & Gynecology; ATTEND Obstetrics & Gynecology
PROC: 10E0XZZ Delivery of Products of Conception, External Approach (ICD-10-PCS; principal; 2020-05-08)
PROC: 10907ZC Drainage of Amniotic Fluid, Therapeutic from Products of Conception, Via Natural or Artificial Opening (ICD-10-PCS; 2020-05-08)
PROC: 0HQ9XZZ Repair Perineum Skin, External Approach (ICD-10-PCS; 2020-05-08)
PROC: 3E0R3BZ Introduction of Anesthetic Agent into Spinal Canal, Percutaneous Approach (ICD-10-PCS; 2020-05-08)
PROC: 00HU33Z Insertion of Infusion Device into Spinal Canal, Percutaneous Approach (ICD-10-PCS; 2020-05-08)
PROC: 4A1HXCZ Monitoring of Products of Conception, Cardiac Rate, External Approach (ICD-10-PCS; 2020-05-08)
DX: O99.02 Anemia complicating childbirth (principal); Z37.0 Single live birth; Z3A.39 39 weeks gestation of pregnancy; Z20.828 Contact with and (suspected) exposure to other viral communicable diseases; O26.893 Other specified pregnancy related conditions, third trimester; Z67.41 Type O blood, Rh negative; O76 Abnormality in fetal heart rate and rhythm complicating labor and delivery; O70.0 First degree perineal laceration during delivery
CPT/HCPCS: 01967; 36415; 36430; 51702; 59025; 59409; 82803; 85014; 85018; 85027; 85460; 86592; 86850; 86900; 86901; A9270-GY; J2590; J2792; U0002